=== PATIENT | male | born 1970 | race African-American/Black ===

== ENCOUNTER 2016-09-21 10:46 | Emergency (ER) | payer OTHER ==
--- NOTE | ~2016-09-21 | EKG ---
PATIENT: PABLITO HUSTON UNIT #: [id number] Ventricular Rate: 66 BPM Atrial Rate: 66 BPM P-R Interval: 164 ms QRS Duration: 82 ms Q-T Interval: 414 ms QTC Calculation(Bezet): 434 ms P [place]: 59 degrees Calculated R [place]: 31 degrees Calculated T [place]: 28 degrees Diagnosis Line: Normal sinus rhythm Diagnosis Line: Normal ECG Diagnosis Line: No previous ECGs available Diagnosis Line: Confirmed by HUDSON GONZALEZ MD ([id number]) on Diagnosis Line: 09/23/2016 8:31:20 AM INTERPRETING MD: LISA IVAN
--- NOTE | ~2016-09-21 | CR72 ---
[facility]. [facility] A Service of [facility] & [facility] RADIOLOGY TEXT RESULTS PATIENT: PABLITO HUSTON LOCATION: SED : 68 UNIT #: [id number] AGE: [address]: Rodolfo Burkett MD SEX: M ORDER DR: [id number] [place] [id number] E MR#: [id number] Acc #: [id number] NAME: PABLITO HUSTON : 1970 SEX: M STUDY DATE/TIME: 09/21/2016 11:28 UNIT: SED ROOM: STUDY DESCRIPTION: CR Chest Single View Portable Attending Physician: Rodolfo Burkett M.D. Ordering Physician: Rodolfo Burkett M.D. Primary Care Physician: No Primary Care Physician MEDICAL IMAGING REPORT This report is preliminary unless electronic signature is present. EXAM Portable chest INDICATIONS Shortness of breath and dizziness off and on for 3 weeks. COMPARISON No comparisons. FINDINGS The lungs are well expanded. Calcified granuloma, left base. Heart size normal. Visualized osseous structures are unremarkable. IMPRESSION No active disease. Dictated by... Ezequiel Garza M.D. THIS IS AN ELECTRONICALLY VERIFIED REPORT Ezequiel Garza M.D. at 09/21/2016 4:01 PM Jocelyn TD: 09/21/2016 14:46 JOB #: [id number] MEDICAL IMAGING REPORT Page 1 of 1
[2016-09-21] MEDS ORDERED: TOPROL XL (10:52)
[2016-09-21] MEDS ORDERED: LAMICTAL (10:52)
[2016-09-21] MEDS ORDERED: MUSCLE RELAXER (10:52)
[2016-09-21] MEDS ORDERED: [UNRECOGNIZED DRUG - OTHER] (10:52)
[2016-09-21 11:22] LABS: BASOPHIL# 0.1 X10e3 (0-0.3); BASOPHIL% 1.5 % (0-2.5); EOSINOPHIL# 0.1 X10e3 (0-0.7); EOSINOPHIL% 0.8 % (0.0-7.0); HEMATOCRIT 38.8 % (38.0-50.0); HEMOGLOBIN 13.1 gm/dL (13.0-16.0); LYMPHOCYTE# 1.5 X10e3 (1.0-3.5); LYMPHOCYTE% 22.8 % (17.0-45.0); MEAN CELL VOLUME 90.4 FL (83-96); MEAN CORPUSCULAR HEMOGLOBIN 30.6 PG (28-34); MEAN CORPUSCULAR HGB CONC 33.9 g/dL (30-36); MEAN PLATELET VOLUME 6.5 FL (6.5-11.5); MONOCYTE# 0.5 X10e3 (0-1.0); MONOCYTE% 7.8 % (3.0-12.0); NEUTROPHIL# 4.4 X10e3 (1.5-7.1); NEUTROPHIL% 67.1 % (40-75); PLATELET COUNT 286 X10e3 (140-420); RED BLOOD COUNT 4.29 X10e (3.90-5.60); RED CELL DISTRIBUTION WIDTH 12.8 % (11.0-15.5); WHITE BLOOD COUNT 6.6 X10e3 (4.0-10.5)
[2016-09-21 11:23] LABS: DIFF IND NO
[2016-09-21 11:35] LABS: POC - CKMB <1.0 ng/mL (0.0-7.9); POC - TROPONIN <0.05 ng/mL (<=0.05)
[2016-09-21 11:39] LABS: ALBUMIN SERUM 4.2 g/dL (3.5-5.0); BILIRUBIN, DIRECT 0.1 mg/dL (0.0-0.2); BILIRUBIN,INDIRECT 0.3 mg/dL (0.0-0.9); BILIRUBIN,TOTAL 0.4 mg/dL (0.2-2.0); BUN/CREATININE RATIO 10.27; CALCIUM SERUM 9.3 mg/dL (8.4-10.2); CREATININE SERUM 3.7 mg/dL (0.6-1.4); GLOM FILT RATE Estimated 18.5 mL/min (>60); PROTEIN TOTAL SERUM 7.4 g/dL (6.0-8.3)
[2016-09-21 12:56] LABS: POC - CKMB <1.0 ng/mL (0.0-7.9); POC - TROPONIN <0.05 ng/mL (<=0.05)
== END 2016-09-21 15:55 ==
LOC: SED 10:46
PROVIDERS: Emergency Medicine
DX: N19 Unspecified kidney failure (principal); R06.02 Shortness of breath; I10 Essential (primary) hypertension; F17.200 Nicotine dependence, unspecified, uncomplicated
CPT/HCPCS: 36415; 71010; 80048; 80076; 82553; 83880; 84484; 85025; 85379; 93005; 99285